=== PATIENT | male | born 1950 | race Caucasian/White ===

== ENCOUNTER → 2019-12-16 10:13 | Outpatient (BNVA) | payer MEDICARE, OTHER, SELFPAY | PROVIDERS: Family Provider Family Medicine; PCP Family Medicine; Visit Provider Urology | DX: N40.1 Benign prostatic hyperplasia with lower urinary tract symptoms (principal); N13.8 Other obstructive and reflux uropathy; N52.9 Male erectile dysfunction, unspecified; N48.6 Induration penis plastica | CPT/HCPCS: 81001 ==

== ENCOUNTER 2019-12-29 09:27 | Outpatient (CLI) | payer MEDICARE, OTHER, SELFPAY ==
--- NOTE | 2019-12-29 | XR_ITS ---
WS: [id number] KNEE RIGHT TECHNIQUE: 2 views of the right knee CLINICAL INFORMATION: RIGHT KNEE MENISCAL TEAR COMPARISON: None. FINDINGS: Moderate joint space narrowing medial joint compartment. Hypertrophic patella. Soft tissue edema. Nahid rowing at the patellofemoral articulation. Mild soft tissue edema. XR/XR knee RT 1-2V [id number] IMPRESSION: Moderate joint space narrowing medial joint compartment and patellofemoral mushtaq culation.
--- NOTE | 2019-12-29 | XR_ITS ---
WS: [id number] KNEES AP STANDING TECHNIQUE: Bilateral AP weightbearing view. CLINICAL INFORMATION: RIGHT KNEE MENISCAL TEAR COMPARISON: None. FINDINGS: Moderate right and mild left medial compartment narrowing. Mild degenerative arthritis both knees. Mi ld hypertrophic changes along the joint line, right greater than left. No acute fractures. XR/[place] [id number] IMPRESSION: Moderate right and mild left medial compartment narrowing both knees.
--- NOTE | 2019-12-29 | XR_ITS ---
WS: [id number] KNEE LEFT TECHNIQUE: 2 views of the left knee CLINICAL INFORMATION: RIGHT KNEE MENISCAL TEAR COMPARISON: None. FINDINGS: Mild degenerative arthritis left knee. Mild medial compartment narrowing. Hypertrophic patella. No si gnificant effusion. Mild soft tissue edema. XR/XR knee LT 1-2V [id number] IMPRESSION: Mild degenerative arthritis. No acute fractures.
== END 2019-12-29 09:28 | disposition home or self-care (01) ==
LOC: RADOUTREAD 10:43
PROVIDERS: Family Provider Family Medicine; PCP Family Medicine; Visit Provider Family Medicine
DX: Z01.89 Encounter for other specified special examinations (principal)

== ENCOUNTER → 2020-12-21 08:35 | Outpatient (BNVA) | payer MEDICARE, OTHER, SELFPAY | PROVIDERS: Family Provider Family Medicine; PCP Family Medicine; Visit Provider Urology | DX: N13.8 Other obstructive and reflux uropathy (principal); N40.1 Benign prostatic hyperplasia with lower urinary tract symptoms; N52.9 Male erectile dysfunction, unspecified; N48.6 Induration penis plastica | CPT/HCPCS: 81003 ==

== ENCOUNTER 2021-11-16 03:23 | Emergency (ER) | payer MEDICARE, OTHER, SELFPAY ==
[2021-11-16 03:32] VITALS: BP 183/99; PULSE 81; RESP 18; TEMP 35.9; O2SAT 99; BMI 31.5
--- NOTE | 2021-11-16 03:35 | W.ED.EAR ---
HPI - Ear Problem General: Chief complaint: Ear Stated complaint: bug in right ear Time Seen by Provider: 11/16/21 03:24 Source: patient Mode of arrival: ambulatory Limitations: no limitations History of Present Illness: HPI Narrative: 71-year-old male states he was laying down felt a bug on his right ear roughly 1 hour ago he states has not been able to get out is causing irritation to the right ear denies any other complaints denies any pain denies any other injuries. Associated symptoms: Reports ear or mastoid pain; Denies fever(s), headache(s) or neck pain Review of Systems Const: Denies: fever(s), chills, body aches or change in appetite Eyes: Denies: blurry vision or eye discomfort ENMT: Reports: ear or mastoid pain Card: Denies: chest pain Resp: Denies: dyspnea GI: Denies: abdominal pain, nausea, vomiting or diarrhea : Denies: dysuria Musc: Denies: neck pain or back pain Skin/Breast: Denies: rash Neuro: Denies: headache(s) Psych: Denies: depression Mango/Lymph: Denies: easy bruising All/Imm: Denies: urticaria PFSH ED PFSH: Medical History (Updated 11/16/21 @ 03:36 by Marc Sotelo MD) BPH with obstruction/lower urinary tract symptoms Erectile dysfunction Peyronie disease Premature ejaculation, acquired, generalized, mild Surgical History History of hemorrhoidectomy History of right knee surgery History of shoulder surgery History of uvulectomy Hx of cholecystectomy Family History Father Stroke CHF (congestive heart failure) Sister Hypertension Brother Hypertension Other CAD (coronary artery disease) Chronic kidney disease (CKD) Diabetes Social History Smoking and tobacco status: never smoked Alcohol intake: current Adopted: No Caregiver/support person: No Lives independently: No Household members: spouse Marital status: Current occupational status: retired History of recent travel: No Physical Exam Const: COMMON NORMALS: no acute distress and patient oriented x3 HENMT: OTHER: Bug noted right ear Eye: COMMON NORMALS: EOMs intact bilaterally Neck/C-Spine: COMMON NORMALS: full ROM Chest: COMMONS NORMALS: normal inspection of the chest Resp: COMMON NORMALS: normal respiratory effort Cardio: COMMON NORMALS: regular rate RATE: regular rate Extremity: COMMON NORMALS: normal to inspection Neuro: COMMON NORMALS: patient oriented x3 Psych: COMMON NORMALS: mental status grossly normal Skin: COMMON NORMALS: no rashes or lesions noted GENERAL SKIN EXAM: no rashes or lesions noted Course Vital Signs: Vital signs: Vital Signs Temperature 96.6 F L 11/16/21 03:32 Pulse Rate 81 11/16/21 03:32 Respiratory Rate 18 11/16/21 03:32 Blood Pressure 183/99 11/16/21 03:32 Pulse Oximetry 99 11/16/21 03:32 MDM - Ear MDM Narrative: Medical decision making narrative: Patient presents with a foreign body to his right ear I removed a jocelyne out of his right ear with alligator forceps no irritation to his canal he is stable for discharge Discharge Plan Discharge Patient Disposition: Home Clinical Impression: Foreign body of ear, right Qualifiers: Encounter type: initial encounter Qualified Code(s): T16.1XXA - Foreign body in right ear, initial encounter Condition: Stable Prescriptions: No Action tramadol 50 mg tablet 50 mg PO BID PRNRF: 0 tadalafil 20 mg tablet 20 mg PO DAILY PRN (Reason: sexual activity) Qty: 20 RF: 12 Discharge Orders: Discharge ED (Routine); Ordered 11/16/21 Ordered By: Marc Sotelo Referrals: Edwardo Bacon MD [Primary Care Provider] - Discharge Diet: Advance as tolerated Discharge Activity: Resume usual activity Patient Instructions: Foreign Body - Ear Coding Level of Care Code ED Changeover Operator for Stuart Ho
== END 2021-11-16 03:40 | disposition home or self-care (01) ==
PROVIDERS: Emergency Provider Emergency Medicine; PCP Family Medicine
DX: T16.1XXA Foreign body in right ear, initial encounter (principal); X58.XXXA Exposure to other specified factors, initial encounter
CPT/HCPCS: 99282

== ENCOUNTER → 2021-12-28 16:36 | Outpatient (BNVA) | payer MEDICARE, OTHER, SELFPAY | PROVIDERS: PCP Family Medicine; Visit Provider Urology | DX: Z12.5 Encounter for screening for malignant neoplasm of prostate (principal); N52.9 Male erectile dysfunction, unspecified; N40.1 Benign prostatic hyperplasia with lower urinary tract symptoms; N13.8 Other obstructive and reflux uropathy; N48.6 Induration penis plastica | CPT/HCPCS: G0103 ==

== ENCOUNTER 2022-12-26 06:48 | Outpatient (CLI) | payer MEDICARE, OTHER, SELFPAY ==
[2022-12-26 07:42] LABS: PSA Screen - Urology 4.18 ng/mL (0-4)
== END 2022-12-26 06:49 | disposition home or self-care (01) ==
LOC: LAB 06:51
PROVIDERS: PCP Family Medicine; Visit Provider Urology
DX: Z12.5 Encounter for screening for malignant neoplasm of prostate (principal); N40.1 Benign prostatic hyperplasia with lower urinary tract symptoms; N13.8 Other obstructive and reflux uropathy; N52.9 Male erectile dysfunction, unspecified; N48.6 Induration penis plastica; R97.20 Elevated prostate specific antigen [PSA]
CPT/HCPCS: 51798; 81003; 99213; G0103